=== PATIENT | female | born 1990 | race Caucasian/White ===

== ENCOUNTER 2019-12-27 13:45 | Emergency (ER) | payer BC, MEDICAID ==
[~2019-12-27] VITALS: Ht 154.9 cm; Wt 118.2 kg
[2019-12-27 15:18] LABS: BASO % 0.1 % (0.0-2.0); EOS # 0.1 (0.0-0.7); EOS % 0.7 % (0-4.0); GRAN # 6.5 (1.4-6.5); GRAN % 77.9 % (42.2-75.2); HEMOGLOBIN 12.2 g/dl (12.5-16.0); LYMPH # 1.2 (1.2-3.4); MEAN CELL VOLUME 84 fl (80.0-100.0); MEAN CORPUSCULAR HEMOGLOBIN 28 pg (27.0-31.0); MEAN CORPUSCULAR HGB CONC 33 g/dl (33.0-37.0); MEAN PLATELET VOLUME 10.3 fl (7.4-10.4); MONO # 0.6 (0.1-0.6); MONO % 7.1 % (1.7-9.3); PLATELET COUNT 211 K/mm3 (130-400); RED BLOOD COUNT 4.34 M/mm3 (4.10-5.30); REDCELL DISTRIBUTION WIDTH-CV 13.1 % (11.5-14.5)
[2019-12-27 15:22] LABS: COLLECTION METHOD CLEAN CATCH
[2019-12-27 15:23] LABS: HEMATOCRIT 36.6 % (37.0-47.0)
[2019-12-27 15:26] LABS: ALBUMIN 3.7 gm/dL (3.5-5.0); BILIRUBIN,TOTAL 0.2 mg/dL (0.0-1.0); CALCIUM 9.2 mg/dL (8.4-10.2); CREATININE, serum 0.37 (0.52-1.25); POTASSIUM 4.3 mmol/L (3.4-5.0)
[2019-12-27 15:33] LABS: PH 5 (5-8); SQUAMOUS EPITHELIAL 0-2 /hpf; URINE APPEARANCE Clear; URINE BACTERIA Rare /hpf; URINE BILIRUBIN Negative (NEGATIVE); URINE BLOOD Negative (NEGATIVE); URINE COLOR Straw; URINE GLUCOSE Negative (NEGATIVE); URINE KETONE Negative (NEGATIVE); URINE LEUKOCYTE ESTERASE Negative (NEGATIVE); URINE NITRATE Negative (NEGATIVE); URINE PROTEIN(semi-quant) Negative (NEGATIVE); URINE UROBILINOGEN Negative (NEGATIVE)
[2019-12-27 16:58] VITALS: BP 134/92; TEMP 97.7
[2019-12-27 18:30] VITALS: PULSE 91
== END 2019-12-27 18:30 | disposition home or self-care (01) ==
LOC: COL.ER 13:45
PROVIDERS: Physician Assistant
DX: O46.92 Antepartum hemorrhage, unspecified, second trimester (principal); Z3A.17 17 weeks gestation of pregnancy
CPT/HCPCS: J7030

== ENCOUNTER 2020-05-26 13:45 | Inpatient (IN) | payer BC, MEDICAID ==
[~2020-05-26] VITALS: Ht 154.9 cm; Wt 152.7 kg
--- NOTE | 2020-05-26 19:00 | NUR ---
G1L0. 38-6. Pt wheeled to LDR 2 with spouse for scheduled cytotec induction for PIH. Clean gown on. EFM and TOCO explained and applied. Pt denies contractions, LOF or vaginal bleeding. Reports good movement. Plan of care explained to pt and questions answered. 1914: COVID swab completed at this time. 0: Consents signed. IV started and labs obtained vis IV site. LR bolus infusing without difficulties. 2000: SVE /-2. Cytotec placed without difficulty. Pt repositioned to left lateral and plan of care explained. Call light within reach.
[2020-05-26 19:30] VITALS: BP 130/86; PULSE 115
[2020-05-26] MEDS ORDERED: PRENATAL MVI PO (19:39)
[2020-05-26] MEDS ORDERED: SYNTHROID0.1 MG/TAB PO (19:39)
[2020-05-26] MEDS ORDERED: ZYRTEC 10MG10 MG PO (19:40)
[2020-05-26 20:00] VITALS: BP 138/92; PULSE 100
[2020-05-26 20:03] LABS: BASO % 0.1 % (0.0-2.0); EOS % 0.6 % (0-4.0); GRAN # 5.3 (1.4-6.5); GRAN % 76.5 % (42.2-75.2); HEMOGLOBIN 11.6 g/dl (12.5-16.0); LYMPH % 13.7 % (20.0-51.0); MEAN CELL VOLUME 82 fl (80.0-100.0); MEAN CORPUSCULAR HEMOGLOBIN 26 pg (27.0-31.0); MEAN CORPUSCULAR HGB CONC 32 g/dl (33.0-37.0); MEAN PLATELET VOLUME 11.9 fl (7.4-10.4); MONO # 0.6 (0.1-0.6); MONO % 8.5 % (1.7-9.3); PLATELET COUNT 217 K/mm3 (130-400); REDCELL DISTRIBUTION WIDTH-CV 15.9 % (11.5-14.5)
[2020-05-26 20:09] LABS: HEMATOCRIT 35.9 % (37.0-47.0)
[2020-05-26 20:30] VITALS: BP 138/89; PULSE 104; TEMP 98
[2020-05-26 21:00] VITALS: BP 143/88; PULSE 88
[2020-05-26 21:30] VITALS: BP 152/86; PULSE 97
[2020-05-26 22:00] VITALS: BP 135/71; PULSE 95
[2020-05-27] VITALS (57 sets, daily range): BP systolic 85–162; BP diastolic 47–96; PULSE 69–107; TEMP 97.2–98.5
--- NOTE | 2020-05-27 06:42 | NUR ---
0642- Pt. out of shower and in bed. EFM and TOCO on and tracing. RN remains at bedside, explains plans for the day, takes vitals and answers questions. Call light within reach.
--- NOTE | 2020-05-27 08:08 | NUR ---
0737- RN TO BEDSIDE TO READJUST MATERNAL POSITIONING. REPOSITIONED TO WR. EFM TRACING INTERMITTENTLY DUE TO MATERNAL POSITIONING. RN REMAINS AT BEDSIDE. 0742- MATERNAL O2 SAT ON AND TRACING. RN REMAINS AT BEDSIDE READJUSTING EFM TO TRACE FHR. 0800- FHR TRACING. CALL LIGHT WITHING REACH. MATERNAL O2 SAT REMAINS ON AND TRACING.
--- NOTE | 2020-05-27 09:00 | NUR ---
0856- DR. EDMOND TO BEDSIDE. EXPLAINED PLAN FOR THE DAY AND ANSWERED QUESTIONS. RN REMAINS AT BEDSIDE. 0900- SVE /3, UNABLE TO BREAK WATER AT THIS TIME.
--- NOTE | 2020-05-27 10:15 | NUR ---
1000- PT UP TO THE BATHROOM. RN REMAINS IN THE ROOM 1005- EFM AND TOCO BACK ON AND TRACING INTERMITTENTLY DUE TO MATERNAL POSITION. PT REQUESTED TO TRY BIRTHING BALL. HELPED PT. TO BIRTHING BALL. EFM TRACING INTERMITTENTLY DUE TO MATERNAL POSITION. RN REMAINS AT BEDSIDE. 1012- PT STANDING DUE TO INABILITY TO TRACE EFM CONSISTENTLY. RN REMAINS AT BEDSIDE. 1018- PT UNCOMFORTABLE AND REQUESTED TO GET BACK IN BED. REPOSITIONED TO WL AND SITTING UP IN BED. EFM AND TOCO ADJUSTED AND TRACING. CALL LIGHT WITHIN REACH.
--- NOTE | 2020-05-27 12:30 | NUR ---
1227- GOODPASTURE TO THE BEDSIDE FOR SVE AND AROM. SVE /-3, UNCHANGED 1228- AROM WITH MODERATE AMOUNT OF CLEAR FLUID NOTED. RN REMAINS AT BEDSIDE AND ADJUST EFM AND TOCO TO TRACE.
--- NOTE | 2020-05-27 13:15 | NUR ---
1300- RN TO ROOM TO GET TEMPERATURE ON PT AND CHECK ON HER. LINENS NOTICED TO BE SATURATED IN CLEAR AMNIOTIC FLUIDS AND THE FLOOR TO BE WET WELL. RN CLEANED UP FLOOR WITH TOWELS. 1310- PT ASSISTED TO STANDING POSITION. RN CHANGED LINENS. EFM TRACING INTERMITTENTLY DUE TO MATERNAL POSITION. RN REMAINS AT BEDSIDE. 1315- PT. ASSISTED BACK INTO BED. EFM AND TOCO ADJUSTED AND TRACING. CALL LIGHT WITHIN REACH.
--- NOTE | 2020-05-27 15:07 | NUR ---
1450- TREMAINE, SHORTHAND REPORTER TO BEDSIDE FOR EPIDURAL PLACEMENT. PT AND ROOM SET UP FOR PROCEDURE. MATERNAL O2 SAT MONITOR ON AND TRACING. RN REMAINS AT BEDSIDE. EFM TRACING INTERMITTENTLY DUE TO MATERNAL POSITIONING. RN REMAINS AT BEDSIDE REPOSITIONING EFM TO GET FHT. 1504- SINGLE SHOT, SEE ANESTHESIA RECORD. 1507- TEST DOSE, SEE ANESTHESIA RECORD. 1515- PT. REPOSITIONED TO LL, EFM AND TOCO ADJUSTED AND TRACING. RN REMAINS AT BEDSIDE.
--- NOTE | 2020-05-27 16:05 | NUR ---
1604- Dr. Beebe to bedside for SVE. 1605- SVE unchanged. section discussed and agreed on by doctor and pt. Questions answered and procedure explained. Pt. prepped for section. RN remains in the room. 1628- EFM and TOCO disconnected and pt. wheeled back to OR for primary due to failure to progress, per the doctor.
[2020-05-28] VITALS: BP 137/79; PULSE 102; TEMP 98.7
[2020-05-28 03:45] VITALS: BP 113/51; PULSE 95; TEMP 97.4
[2020-05-28 07:56] VITALS: BP 113/62; PULSE 81; TEMP 97.9
[2020-05-28] MEDS ORDERED: PERCOCET 325 MG1 TA2 PO (08:58)
[2020-05-28] MEDS ORDERED: IBU800 M1 PO (08:58)
[2020-05-28 11:10] VITALS: BP 108/72; PULSE 89; TEMP 98.4
[2020-05-28 16:38] VITALS: BP 115/56; PULSE 86; TEMP 98.2
[2020-05-28 20:20] VITALS: BP 130/78; PULSE 89; TEMP 97.9
[2020-05-29 09:00] VITALS: BP 107/59; PULSE 96; TEMP 98.1
--- NOTE | 2020-05-29 15:15 | NUR ---
Discharge instructions given, pt verbalizes understanding. No further questions noted. Bands matched and hugs tag removed.
== END 2020-05-29 15:30 | disposition home or self-care (01) | DRG 788 ==
LOC: OB 13:45 → LDR 18:49 → OB 05-27 18:15 → EDSTATUS 06-03 10:19 → OB 06-03 10:19 → LDRO 06-03 16:19
PROVIDERS: ADMIT Student in an Organized Health Care Education/Training Program
PROC: 10D00Z1 Extraction of Products of Conception, Low, Open Approach (ICD-10-PCS; principal; 2020-05-27)
PROC: 3E0P7VZ Introduction of Hormone into Female Reproductive, Via Natural or Artificial Opening (ICD-10-PCS; 2020-05-27)
DX: O14.04 Mild to moderate pre-eclampsia, complicating childbirth (principal); O36.63X0 Maternal care for excessive fetal growth, third trimester, not applicable or unspecified; Z37.0 Single live birth; O99.214 Obesity complicating childbirth; E66.01 Morbid (severe) obesity due to excess calories; O99.284 Endocrine, nutritional and metabolic diseases complicating childbirth; E03.9 Hypothyroidism, unspecified; O99.344 Other mental disorders complicating childbirth; F41.9 Anxiety disorder, unspecified; E28.2 Polycystic ovarian syndrome; O61.9 Failed induction of labor, unspecified; Z3A.39 39 weeks gestation of pregnancy
CPT/HCPCS: J0690; J1885; J2270; J2370; J2400; J2405; J2590; J2795; J7120

== ENCOUNTER 2022-01-31 16:07 | Emergency (ER) | payer OTHER, MEDICAID ==
[~2022-01-31] VITALS: Ht 154.9 cm; Wt 131.8 kg
[~2022-01-31 16:07] MED LIST: IBU800 M1 PO; PERCOCET 325 MG1 TA2 PO; PRENATAL MVI PO; SYNTHROID0.1 MG/TAB PO; ZYRTEC 10MG10 MG PO
[2022-01-31 16:17] VITALS: TEMP 98.2
[2022-01-31] MEDS ORDERED: DIFLUCAN50 MG PO (16:54)
[2022-01-31] MEDS ORDERED: PERIDEX (CHLOR480 ML MM (16:54)
[2022-01-31] MEDS ORDERED: AMOXICILLIN 8751 TAB PO (16:55)
[2022-01-31] MEDS ORDERED: NORCO 325 MG-51 TAB PO (17:34)
[2022-01-31 17:57] VITALS: BP 129/75; PULSE 75
== END 2022-01-31 18:00 | disposition home or self-care (01) ==
LOC: COL.ER 16:07
DX: L08.9 Local infection of the skin and subcutaneous tissue, unspecified (principal)